=== PATIENT | male | born 1950 | race Hispanic/Latino ===

== ENCOUNTER → 2017-05-14 | Day surgery (SDC) | payer OTHER ==
[2017-05-10 09:19] VITALS: BMI 34.2
[~2017-05-14] MED LIST: Adenosine 90 mg/30mL IV ONE; Aspirin 325 mg EC Tablets PO STA; Bacitracin 500 Units/gm Oint Foilpak UD ONE; DiphenhydrAMINE 50 mg/ml Inj ONE; Iodixanol 320 MG/ML 100 ML BOTTLE IV ONE; Iodixanol 320 MG/ML 200 ML BOTTLE IV ONE; Lidocaine 2% Inj (20ml) ONE; Midazolam 2 MG/2 ML VIAL ONE; Sodium Chloride 0.9% 1,000 ML IV SCH; Verapamil 2 ML ONE
[2017-05-14 09:06] LABS: BASO # 0.08 K/mm3 (0.0-2.0); BASO % 0.8 % (0.0-3.0); EOS # 0.2 (0.0-0.7); EOS % 2.5 % (1.5-5.0); GRAN # 7.24 (1.4-6.5); GRAN % 76.9 % (50.0-68.0); HEMOGLOBIN 13.3 g/dL (14.0-18.0); LYMPH # 1.4 (1.2-3.4); LYMPH % 15.1 % (22.0-35.0); MEAN CELL VOLUME 88.7 fl (80.0-105.0); MEAN CORPUSCULAR HEMOGLOBIN 29.5 pg (25.0-35.0); MEAN CORPUSCULAR HGB CONC 33.3 g/dl (31.0-37.0); MEAN PLATELET VOLUME 10.7 fl (7.0-11.0); MONO # 0.4 (0.1-0.6); MONO % 4.7 % (1.0-6.0); RBC 4.51 10^6/uL (3.5-6.1); RED CELL DISTRIBUTION WIDTH 14.7 % (11.5-14.5); WHITE BLOOD COUNT 9.4 10^3/ul (4.5-11.0)
[2017-05-14 09:15] VITALS: RESP 18
[2017-05-14 09:15] LABS: CALCIUM 9.8 mg/dL (8.4-10.5)
[2017-05-14 09:19] LABS: INR 1.41 (0.93-1.08); PARTIAL THROMBOPLASTIN TIME 41.7 Seconds (25.1-36.5); PROTHROMBIN TIME 16.3 SECONDS (9.4-12.5)
[2017-05-14 12:04] VITALS: TEMP 98.5
[2017-05-14 15:19] VITALS: BP 136/80; PULSE 62; O2SAT 97
--- NOTE | 2017-05-14 23:49 | CARD ---
APPROVED REPORT EKG Measurement Heart [id number] FL [id number] <Conclusion> Sinus bradycardia Otherwise normal ECG
--- NOTE | 2017-05-15 08:12 | CARDCATH ---
PROCEDURE DATE: 05/14/2017 INDICATION: The patient is a pleasant 66-year-old male with history of hypertension, dyslipidemia, who was referred to me for evaluation of symptoms of dyspnea on exertion and abnormal stress test. Patient underwent a left heart catheterization with selective left and right coronary angiogram via left radial artery approach. Manual pressure for hemostasis. TECHNIQUES OF PROCEDURE: After obtaining informed consent, the patient was brought to the cardiac cath suite in post-absorptive and non-sedated state. The patient was prepped and draped in the usual sterile fashion. A 2% lidocaine was used for infiltration of anesthesia. Using modified Seldinger technique, a 6-Brazilian sheath was introduced into the left radial artery. Subsequently, over J-wire, JL4 and JR4 diagnostic catheters were used to engage the left and right coronary system. Angiograms were obtained in different orthogonal views. Subsequently, LV gram was obtained in the LOPEZ view. were obtained and pullback gradients were noted. CORONARY ANATOMY: Left main is a large-sized vessel, bifurcates into LAD and left circumflex coronary artery. LAD is a large-size vessel, gives off small sized diagonal branch which has osteal 60% stenosis, gives off 2 more small diagonal branches and 3 septal perforators. Left circumflex runs in the AV groove and gives off obtuse marginal branch medium size with mild nonobstructive disease. Right coronary artery, large size vessel, gives off the right PDA and PLV branches. HEMODYNAMICS: Left ventricular end-diastolic pressure was 18 mmHg. There was no gradient noted upon the aortic valve. There was no AI and no MN. Left ventricular ejection fraction estimated to be 60% to 65%. IMPRESSION: Nonobstructive coronary artery disease, moderate diagonal disease, normal ejection fraction. RECOMMENDATIONS: Continue aggressive medical management and risk factor modification. The patient is to be discharged home in 3 hours and follow up with Dr. Phillips in . Pan Peraza MD cc: Erasmo Phillips MD
== END | disposition home or self-care (01) ==
LOC: CATH 08:15
PROVIDERS: ATTEND Internal Medicine Interventional Cardiology
DX: I25.10 Atherosclerotic heart disease of native coronary artery without angina pectoris (principal); E78.5 Hyperlipidemia, unspecified; I10 Essential (primary) hypertension; Z79.01 Long term (current) use of anticoagulants; Z86.711 Personal history of pulmonary embolism; Z86.718 Personal history of other venous thrombosis and embolism
CPT/HCPCS: 36415; 80048; 80061; 85025; 85610; 85730; 86850; 86900; 93005; 93458; 99152; 99153; C1769 ×2; C1887; J0153; J1200; J1644 ×2; J2250; J3010; J7030; J7040; Q9966; Q9967